=== PATIENT | female | born 1995 | race Caucasian/White ===

== ENCOUNTER 2017-08-22 21:07 | Emergency (ER) | payer OTHER ==
[2017-08-22 21:34] VITALS: BP 132/78
[2017-08-22] MEDS ORDERED: Oseltamivir CAP* 75 MG CAP PO ONE (22:03)
--- NOTE | 2017-08-22 22:17 | UC ---
Respiratory Complaint HPI - HPI Summary HPI Summary: 22 yo female with onset this AM of fever/cough/runny nose/headache/myalgias daughter just diagnosed with flu - History of Current Complaint Chief Complaint: UCGeneralIllness Stated Complaint: COUGH Time Seen by Provider: 08/22/17 21:27 Hx Obtained From: Patient Hx Last Menstrual Period: IUD Onset/Duration: Sudden Onset, Lasting Hours Timing: Constant Severity Initially: Moderate Severity Currently: Moderate Pain Intensity: 5 Pain Scale Used: 0-10 Numeric Character: Cough: Nonproductive Associated Signs And Symptoms: Positive: URI, Nasal Congestion, Sinus Discomfort - Allergies/Home Medications Allergies/Adverse Reactions: Allergies Allergy/AdvReac Type Severity Reaction Status Date / Time MS Sulfa Drugs [Sulfa Drugs] Allergy Intermediate Rash Verified 03/09/13 16:16 generic azithromycin Allergy Vomiting Uncoded 05/23/12 19:17 Home Medications: Home Medications Iud 08/22/17 [History] PMH/Surg Hx/FS Hx/Imm Hx Previously Healthy: Yes - Surgical History Surgical History: Yes Surgery Procedure, Year, and Place: t/a ~2008 - Family History Known Family History: Positive: Hypertension - Social History Alcohol Use: None Substance Use Type: None Smoking Status (MU): Never Smoked Tobacco - Immunization History Vaccination Up to Date: Yes Review of Systems Constitutional: Fever, Chills, Fatigue Skin: Negative Eyes: Negative ENT: Sore Throat, Nasal Discharge, Sinus Congestion Respiratory: Cough Cardiovascular: Negative Gastrointestinal: Negative Genitourinary: Dysuria Motor: Negative Neurovascular: Negative Musculoskeletal: Myalgia Neurological: Headache Psychological: Negative Is Patient Immunocompromised?: No All Other Systems Reviewed And Are Negative: Yes Physical Exam Triage Information Reviewed: Yes Appearance: Well-Appearing, No Pain Distress, Well-Nourished Vital Signs: Initial Vital Signs Temp 99.2 F 08/22/17 21:32 Pulse 94 08/22/17 21:32 Resp 18 08/22/17 21:32 BP 132/78 08/22/17 21:32 Pulse Ox 100 08/22/17 21:32 Vital Signs Reviewed: Yes Eyes: Positive: Conjunctiva Clear ENT: Positive: Hearing grossly normal, Pharyngeal erythema, Nasal congestion, TMs normal, Uvula midline. Negative: Nasal drainage, TM bulging, TM dull, TM red, Tonsillar swelling, Tonsillar exudate, Trismus, Muffled voice, Hoarse voice , Sinus tenderness Dental Exam: Normal Neck: Positive: Supple, Nontender, No Lymphadenopathy Respiratory: Positive: Lungs clear, Normal breath sounds, No respiratory distress Cardiovascular: Positive: RRR Musculoskeletal: Positive: ROM Intact, No Edema Neurological: Positive: Alert Psychological Exam: Normal Skin Exam: Normal UC Diagnostic Evaluation - Laboratory Pertinent Lab Values Are: WNL - influenza (-) O2 Sat by Pulse Oximetry: 100 - normal/not hypoxic Respiratory Course/Dx - Differential Dx/Diagnosis Provider Diagnoses: influenza or influenza like illness Discharge - Discharge Plan Condition: Stable Disposition: HOME Prescriptions: Oseltamivir CAP* [Tamiflu CAP*] 75 mg PO BID #9 cap Patient Education Materials: Influenza (ED) Referrals: No Primary Care Phys,NOPCP [Primary Care Provider] - Additional Instructions: recheck in 5 days if not better
== END 2017-08-22 22:22 | disposition home or self-care (01) ==
LOC: UCCORT 21:07
DX: J11.1 Influenza due to unidentified influenza virus with other respiratory manifestations (principal); Z88.1 Allergy status to other antibiotic agents; Z88.2 Allergy status to sulfonamides
CPT/HCPCS: 87502; 99212; A9270-GY; G0463

== ENCOUNTER 2017-09-27 20:05 | Emergency (ER) | payer OTHER ==
[2017-09-27 21:34] VITALS: BP 102/65
--- NOTE | 2017-09-27 22:05 | UC ---
Throat Pain/Nasal Jackson HPI - HPI Summary HPI Summary: Patient to urgent care this evening with her daughter. Patient complains of 1 day of sinus and ear congestion. No fevers chills sore throat nausea vomiting or diarrhea. Child has similar symptoms - History of Current Complaint Chief Complaint: UCGeneralIllness Stated Complaint: SORE THROAT, EARS Time Seen by Provider: 09/27/17 21:34 Hx Obtained From: Patient Hx Last Menstrual Period: 09/21/17 ?: No Onset/Duration: Sudden Onset, Lasting Days - 1, Still Present Severity: Moderate Pain Intensity: 6 Pain Scale Used: 0-10 Numeric Cough: None Associated Signs & Symptoms: Positive: Sinus Discomfort, Nasal Discharge - Allergies/Home Medications Allergies/Adverse Reactions: Allergies Allergy/AdvReac Type Severity Reaction Status Date / Time MS Sulfa Drugs [Sulfa Drugs] Allergy Intermediate Rash Verified 03/09/13 16:16 generic azithromycin Allergy Vomiting Uncoded 05/23/12 19:17 Home Medications: Home Medications Phentermine HCl [Lomaira] 8 mg PO DAILY 09/27/17 [History Confirmed 09/27/17] PMH/Surg Hx/FS Hx/Imm Hx Previously Healthy: Yes - Surgical History Surgical History: Yes Surgery Procedure, Year, and Place: t/a ~2008 - Family History Known Family History: Positive: Hypertension - Social History Occupation: Works From/At Home Lives: With Family Alcohol Use: None Substance Use Type: None Smoking Status (MU): Never Smoked Tobacco - Immunization History Vaccination Up to Date: Yes Review of Systems Constitutional: Negative Skin: Negative Eyes: Negative ENT: Ear Ache, Nasal Discharge, Sinus Congestion Respiratory: Negative Cardiovascular: Negative Gastrointestinal: Negative Genitourinary: Negative Motor: Negative Neurovascular: Negative Musculoskeletal: Negative Neurological: Negative Psychological: Negative Is Patient Immunocompromised?: No All Other Systems Reviewed And Are Negative: Yes Physical Exam Triage Information Reviewed: Yes Appearance: Well-Appearing, No Pain Distress, Well-Nourished Vital Signs: Initial Vital Signs Temp 99.1 F 09/27/17 21:31 Pulse 124 09/27/17 21:31 Resp 17 09/27/17 21:31 BP 102/65 09/27/17 21:31 Pulse Ox 100 09/27/17 21:31 Vital Signs Reviewed: Yes Eye Exam: Normal Eyes: Positive: Conjunctiva Clear ENT Exam: Normal ENT: Positive: Normal ENT inspection, Hearing grossly normal, Pharynx normal, Nasal congestion, Nasal drainage, TMs normal, Uvula midline. Negative: Tonsillar swelling, Tonsillar exudate, Trismus, Muffled voice, Hoarse voice, Dental tenderness, Sinus tenderness Dental Exam: Normal Neck exam: Normal Neck: Positive: Supple, Nontender, No Lymphadenopathy Respiratory Exam: Normal Respiratory: Positive: Chest non-tender, Lungs clear, Normal breath sounds, No respiratory distress, No accessory muscle use Cardiovascular Exam: Normal Cardiovascular: Positive: RRR, No Murmur, Pulses Normal, Brisk Capillary Refill - Primary care doctors on the chart name(earlier Musculoskeletal Exam: Normal Musculoskeletal: Positive: Strength Intact, ROM Intact, No Edema Neurological Exam: Normal Neurological: Positive: Alert, Muscle Tone Normal Psychological Exam: Normal Skin Exam: Normal Throat Pain/Nasal Course/Dx - Course Assessment/Plan: Increase fluids Tylenol ibuprofen for pain Mucinex D Flonase nasal spray recheck when necessary if symptoms should worsen or fail to resolve - Differential Dx/Diagnosis Provider Diagnoses: URI, nasal congestion Discharge - Sign-Out/Discharge Documenting (check all that apply): Discharge - Discharge Plan Condition: Stable Disposition: HOME Prescriptions: Fluticasone NASAL SPRAY 50MCG* [Flonase NASAL SPRAY 50MCG*] 2 spray BOTH NARES DAILY #1 btl Patient Education Materials: Decongestant/Expectorant (By mouth), Fluticasone ( Into the nose), Upper Respiratory Infection (ED) Referrals: [facility] [Outside] - If Needed - Billing Disposition and Condition Condition: STABLE Disposition: HOME
== END 2017-09-27 22:11 | disposition home or self-care (01) ==
LOC: UCCORT 20:05
DX: J06.9 Acute upper respiratory infection, unspecified (principal); R09.81 Nasal congestion; Z88.2 Allergy status to sulfonamides; Z88.1 Allergy status to other antibiotic agents
CPT/HCPCS: 87651; 99211; G0463

== ENCOUNTER 2017-11-27 17:33 | Emergency (ER) | payer OTHER ==
[2017-11-27 18:14] VITALS: BP 114/65
--- NOTE | 2017-11-27 18:37 | UC ---
Throat Pain/Nasal Jackson HPI - HPI Summary HPI Summary: Pt c/o bilateral ear "fullness", sore throat- right side worse than left, PND and generalized malaise. - History of Current Complaint Chief Complaint: UCGeneralIllness Stated Complaint: JACKSON, SORE THROAT, EAR COMPLAINT Time Seen by Provider: 11/27/17 18:18 Hx Obtained From: Patient Hx Last Menstrual Period: 11/21/17 ?: No Onset/Duration: Sudden Onset, Still Present Severity: Mild Pain Intensity: 5 Associated Signs & Symptoms: Positive: Dysphagia, Nasal Discharge - Epiglottits Risk Factors Epiglottis Risk Factors: Sudden Onset - Allergies/Home Medications Allergies/Adverse Reactions: Allergies Allergy/AdvReac Type Severity Reaction Status Date / Time azithromycin Allergy Intermediate Vomiting Verified 11/27/17 18:14 penicillin V Allergy Intermediate Hives Verified 11/27/17 18:14 Sulfa (Sulfonamide Allergy Intermediate Rash Verified 11/27/17 18:14 Antibiotics) generic azithromycin Allergy Vomiting Uncoded 05/23/12 19:17 PMH/Surg Hx/FS Hx/Imm Hx Previously Healthy: Yes - Surgical History Surgical History: Yes Surgery Procedure, Year, and Place: t/a ~2008 - Family History Known Family History: Positive: Hypertension - Social History Occupation: Employed Full-time Lives: With Family Alcohol Use: None Substance Use Type: None Smoking Status (MU): Never Smoked Tobacco Have You Smoked in the Last Year: No - Immunization History Vaccination Up to Date: Yes Review of Systems Constitutional: Fatigue Skin: Negative Eyes: Negative ENT: Sore Throat, Ear Ache Respiratory: Negative Cardiovascular: Negative Gastrointestinal: Negative Genitourinary: Negative Motor: Negative Neurovascular: Negative Musculoskeletal: Negative Neurological: Negative Psychological: Negative Is Patient Immunocompromised?: No All Other Systems Reviewed And Are Negative: Yes Physical Exam Triage Information Reviewed: Yes Appearance: Well-Appearing Vital Signs: Initial Vital Signs Temp 99.1 F 11/27/17 18:08 Pulse 98 11/27/17 18:08 Resp 18 11/27/17 18:08 BP 114/65 11/27/17 18:08 Pulse Ox 100 11/27/17 18:08 Vital Signs Reviewed: Yes Eye Exam: Normal ENT Exam: Other ENT: Positive: TM bulging - right, Tonsillar swelling - right, Tonsillar exudate - right Dental Exam: Normal Neck exam: Normal Neck: Positive: Enlarged Nodes @ - right submandibular Respiratory Exam: Normal Respiratory: Positive: No respiratory distress Musculoskeletal Exam: Normal Neurological Exam: Normal Psychological Exam: Normal Skin Exam: Normal Diagnostics - Laboratory Diagnostic Studies Completed/Ordered: rapid strep: negative. Throat Pain/Nasal Course/Dx - Differential Dx/Diagnosis Differential Diagnosis/HQI/PQRI: Tonsillitis Provider Diagnoses: tonsillitis. right serous otitis media Discharge - Sign-Out/Discharge Documenting (check all that apply): Discharge/Admit/Transfer - Discharge Plan Condition: Stable Disposition: HOME Prescriptions: Cetirizine* [ZyrTEC 10 MG TAB*] 10 mg PO DAILY #7 tab Pseudoephedrine TAB* [Sudafed TAB*] 30 mg PO Q8H #15 tab Patient Education Materials: Tonsillitis (ED), Serous Otitis Media (ED) Referrals: Tonya Sow MD [Primary Care Provider] - - Billing Disposition and Condition Condition: STABLE Disposition: Home
== END 2017-11-27 19:09 | disposition home or self-care (01) ==
LOC: UCCORT 17:33
DX: J03.90 Acute tonsillitis, unspecified (principal); H60.91 Unspecified otitis externa, right ear
CPT/HCPCS: 87651; 99212; G0463

== ENCOUNTER 2018-03-05 19:12 | Emergency (ER) | payer OTHER ==
[2018-03-05 19:59] VITALS: BP 116/69
--- NOTE | 2018-03-05 20:16 | UC ---
Respiratory Complaint HPI - HPI Summary HPI Summary: C/O left ear pain and fullness with loss of hearing today. URI symptoms x 4 days. - History of Current Complaint Chief Complaint: UCRespiratory Stated Complaint: SINUSES, EAR ACHE, COUGH Time Seen by Provider: 03/05/18 20:09 Hx Obtained From: Patient Hx Last Menstrual Period: 02/20/18 ?: No Onset/Duration: Gradual Onset, Lasting Days - 4, Worse Since - yesterday Timing: Constant Severity Initially: Mild Severity Currently: Moderate Pain Intensity: 0 Character: Cough: Nonproductive Aggravating Factors: Nothing Alleviating Factors: Nothing Associated Signs And Symptoms: Positive: Fever, URI, Nasal Congestion - Allergies/Home Medications Allergies/Adverse Reactions: Allergies Allergy/AdvReac Type Severity Reaction Status Date / Time azithromycin Allergy Intermediate Vomiting Verified 03/05/18 19:59 penicillin V Allergy Intermediate Hives Verified 03/05/18 19:59 Sulfa (Sulfonamide Allergy Intermediate Rash Verified 03/05/18 19:59 Antibiotics) generic azithromycin Allergy Vomiting Uncoded 03/05/18 19:59 PMH/Surg Hx/FS Hx/Imm Hx Previously Healthy: Yes - Surgical History Surgical History: Yes Surgery Procedure, Year, and Place: t/a ~2008 - Family History Known Family History: Positive: Hypertension, Respiratory Disease - Social History Occupation: Employed Full-time Lives: With Family Alcohol Use: None Substance Use Type: None Smoking Status (MU): Never Smoked Tobacco Have You Smoked in the Last Year: No - Immunization History Vaccination Up to Date: Yes Review of Systems Constitutional: Fever ENT: Ear Ache, Nasal Discharge Respiratory: Cough Is Patient Immunocompromised?: No All Other Systems Reviewed And Are Negative: Yes Physical Exam Triage Information Reviewed: Yes Appearance: No Pain Distress, Well-Nourished, Ill-Appearing - mild Vital Signs: Initial Vital Signs Temp 98.0 F 03/05/18 19:55 Pulse 68 03/05/18 19:55 Resp 16 03/05/18 19:55 BP 116/69 03/05/18 19:55 Pulse Ox 99 03/05/18 19:55 Vital Signs Reviewed: Yes Eyes: Positive: Conjunctiva Clear ENT: Positive: Pharynx normal, Nasal congestion - with some allergic changes., TMs normal Neck exam: Normal Respiratory Exam: Normal Cardiovascular Exam: Normal Musculoskeletal Exam: Normal Neurological Exam: Normal Psychological Exam: Normal Skin Exam: Normal UC Diagnostic Evaluation - Laboratory O2 Sat by Pulse Oximetry: 99 Respiratory Course/Dx - Differential Dx/Diagnosis Differential Diagnosis/HQI/PQRI: Asthma, Lower Resp Infection, Sinusitis Provider Diagnoses: Acute URI. Left eustachian tube dysfunction Discharge - Sign-Out/Discharge Documenting (check all that apply): Patient Departure All imaging exams completed and their final reports reviewed: No Studies - Discharge Plan Condition: Stable Disposition: HOME Patient Education Materials: Upper Respiratory Infection (ED), Earache (ED) Referrals: Tonya Sow MD [Primary Care Provider] - Additional Instructions: NASAL SPRAYS AND DROPS: Afrin in the PUMP/ MIST bottle (Get generic 12 hours nasal decongestant spray). Tilt your head down and look at the floor while doing a strong sniff with the spray. Decongestant nasal sprays and drops often give dramatic relief from congestion. They are often recommended for patients with sinus infection to assist with sinus drainage. Persons with high blood pressure should consult the doctor before using these nasal sprays. Afrin and Waylon-Synephrine are common [id number] preparations. They should not be used for more than five days, as "rebound" congestion can occur - - the congestion flares as the drug wears off. A way of dealing with this rebound congestion problem is to medicate only one nostril each time, allowing the other nostril to recover from the medicine' s effects. When you no longer need the drug during the day, spray only one nostril each night. This helps you sleep well without severe rebound congestion. Call the doctor if you develop severe headache, palpitations, or chest pain. - Billing Disposition and Condition Condition: STABLE Disposition: Home
== END 2018-03-05 20:40 | disposition home or self-care (01) ==
LOC: UCCORT 19:12
DX: H69.82 Other specified disorders of Eustachian tube, left ear (principal); J06.9 Acute upper respiratory infection, unspecified; Z88.0 Allergy status to penicillin; Z88.1 Allergy status to other antibiotic agents; Z88.2 Allergy status to sulfonamides
CPT/HCPCS: 99211; G0463

== ENCOUNTER 2019-04-06 08:33 | Emergency (ER) | payer OTHER ==
[2019-04-06 08:43] VITALS: BP 106/63
--- NOTE | 2019-04-06 09:00 | UC ---
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 One resident of [facility] is being treated for conjunctivitis, and she was sent for assessment. No eye pain, photophobia or visual blurring. - History of Current Complaint Chief Complaint: UCEye Stated Complaint: RT EYE COMPLAINT Time Seen by Provider: 04/06/19 08:53 Hx Obtained From: Patient Hx Last Menstrual Period: 02/20/18 Onset/Duration: Sudden Onset Pain Intensity: 0 Location of Injury: Conjunctiva Character: Dull Aggravating Factor(s): Nothing Associated Signs And Symptoms: Positive: Drainage (Clear) - Risk Factors Penetrating Injury Risk Factor: Negative Globe Rupture Risk Factors: Negative Acute Glaucoma Risk Factors: Negative - Allergies/Home Medications Allergies/Adverse Reactions: Allergies Allergy/AdvReac Type Severity Reaction Status Date / Time azithromycin Allergy Intermediate Vomiting Verified 04/06/19 08:43 penicillin V Allergy Intermediate Hives Verified 04/06/19 08:43 Sulfa (Sulfonamide Allergy Intermediate Rash Verified 04/06/19 08:43 Antibiotics) generic azithromycin Allergy Vomiting Uncoded 04/06/19 08:43 PMH/Surg Hx/FS Hx/Imm Hx Previously Healthy: Yes - Surgical History Surgical History: Yes Surgery Procedure, Year, and Place: t/a ~2008 - Family History Known Family History: Positive: Hypertension, Respiratory Disease - Social History Occupation: Employed Full-time Lives: With Family Alcohol Use: Occasionally Substance Use Type: None Smoking Status (MU): Never Smoked Tobacco Have You Smoked in the Last Year: No - Immunization History Vaccination Up to Date: Yes Review of Systems All Other Systems Reviewed And Are Negative: Yes Constitutional: Positive: Negative Skin: Positive: Negative Eyes: Positive: Eye Redness ENT: Positive: Nasal Discharge Respiratory: Positive: Shortness Of Breath Cardiovascular: Positive: Negative Gastrointestinal: Positive: Negative Genitourinary: Positive: Negative Motor: Positive: Negative Is Patient Immunocompromised?: No Physical Exam Triage Information Reviewed: Yes Appearance: Well-Appearing, No Pain Distress Vital Signs: Initial Vital Signs Temp 98.0 F 04/06/19 08:39 Pulse 79 04/06/19 08:39 Resp 18 04/06/19 08:39 BP 106/63 04/06/19 08:39 Pulse Ox 99 04/06/19 08:39 Eye Exam: Other - KENDRA, no photophobia, normal lids Eyes: Positive: Conjunctiva Inflamed - on right ENT: Positive: Pharynx normal, TMs normal Respiratory: Positive: Lungs clear, Normal breath sounds Cardiovascular: Positive: RRR, No Murmur Neurological Exam: Normal Psychological Exam: Normal Skin Exam: Normal Eye Complaint Course/Dx - Course Course Of Treatment: Antibiotic drops to treat conjunctivitis - Differential Dx/Diagnosis Differential Diagnosis/HQI/PQRI: Conjunctivitis Provider Diagnosis: Conjunctivitis Discharge ED - Sign-Out/Discharge Documenting (check all that apply): Patient Departure All imaging exams completed and their final reports reviewed: No Studies - Discharge Plan Condition: Good Disposition: HOME Prescriptions: Polymyx/Trimethoprim OPTH* [Polytrim OPHTH*] 2 drop RIGHT EYE Q3H #1 btl Patient Education Materials: Conjunctivitis (ED) Forms: *Work Release Referrals: Tonya Sow MD [Primary Care Provider] - Additional Instructions: Good hand washing will prevent spread of eye infections. Begin use of drops, using drops EVERY @ HOURS in the right eye today, then 4 times daily for the remaining 4 days. I suggest treating the left eye with one drop throughout today to prevent spread to that eye. - Billing Disposition and Condition Condition: GOOD Disposition: Home
== END 2019-04-06 09:26 | disposition home or self-care (01) ==
LOC: UCCORT 08:33
DX: H10.9 Unspecified conjunctivitis (principal); Z88.0 Allergy status to penicillin; Z88.1 Allergy status to other antibiotic agents; Z88.2 Allergy status to sulfonamides
CPT/HCPCS: 99212; G0463